=== PATIENT | female | born 1980 | race Caucasian/White ===

== ENCOUNTER 2019-03-17 14:08 | Outpatient (REF) | payer MEDICAID, SELFPAY ==
[2019-03-18 12:19] LABS: ALT 25 U/L (12-78); AST 12 U/L (15-37); Albumin 3.6 g/dL (3.4-5.0); Alkaline Phosphatase 124 U/L (46-116); Anion Gap 12.3 mmol/L (3-11); BUN 16 mg/dL (7-18); Bilirubin, Total 0.2 mg/dL (0.2-1.0); CO2 23.7 mmol/L (21.0-32.0); CREATININE 0.78 mg/dL (0.55-1.02); Calcium 8.5 mg/dL (8.5-10.1); Calculated LDL 134; Chloride 109 mmol/L (98-107); Cholesterol 206 mg/dL (50-200); Glucose 98 mg/dL (70-100); HDL Cholesterol 62 mg/dL (40-60); Potassium 4.6 mmol/L (3.5-5.1); Sodium 145 mmol/L (136-145); Total Protein 6.8 g/dL (6.4-8.2); Triglyceride 53 mg/dL (30-150)
[2019-03-18 12:37] LABS: Hemoglobin A1C 5.1 % (4.5-6.2)
== END 2019-03-17 14:28 ==
LOC: NCHCN 14:08
PROVIDERS: PCP Internal Medicine; Visit Provider Family Medicine
DX: F11.21 Opioid dependence, in remission (principal); Z13.220 Encounter for screening for lipoid disorders; Z82.49 Family history of ischemic heart disease and other diseases of the circulatory system
CPT/HCPCS: 80053; 80061; 83721; 83036